=== PATIENT | female | born 1955 | race African-American/Black ===

== ENCOUNTER 2017-06-17 15:03 | Emergency (ER) | payer OTHER ==
[~2017-06-17] VITALS: Ht 157.5 cm; Wt 129.3 kg
[~2017-06-17 15:03] MED LIST: ADVAIR 100-501 EACH INH; METFORMIN HCL1000 M1 ORAL; VENTOLIN HFA18 GM INH
[2017-06-17] MEDS ORDERED: SILTUSSIN DM D118 ML PO (15:36)
[2017-06-17] MEDS ORDERED: OYSCO 500+D TA1 EAC1 PO (15:36)
[2017-06-17] MEDS ORDERED: HYDRALAZINE HCL10 MG ORAL (15:36)
[2017-06-17] MEDS ORDERED: [UNRECOGNIZED DRUG - SUPPLY] MC (16:20)
[2017-06-17] MEDS ORDERED: TESSALON PERLE100 MG ORAL (16:20)
[2017-06-17] MEDS ORDERED: ALBUTEROL SULF8.5 GM INH (16:20)
--- NOTE | 2017-06-17 16:20 | Emergency Room Report ---
History of Present Illness General Chief Complaint: General Complaint Source: Patient Present Illness HPI 61-year-old female history of asthma, hypertension, diabetes p/w cough for 3 weeks. Pt states cough is productive, with clear non bloody sputum. Denies fever chills sob or chest pain. Denies runny nose or myalgias. No sick contacts or recent travel. Patient states that she ran out of her albuterol inhaler Allergies: Coded Allergies: No Known Allergies (Unverified , 01/08/16) Patient History Past Medical History: see triage record Past Surgical History: none Pertinent Family History: none Last Menstrual Period: Post Reviewed Nursing Documentation: PMH: Agreed, PSxH: Agreed Nursing Documentation-PMH Hx Hypertension: Yes Hx Asthma: Yes Hx Diabetes: Yes Review of Systems All Other Systems: negative except mentioned in HPI Physical Exam Vital Signs Date Time Temp Pulse Resp B/P (MAP) Pulse Ox O2 Delivery O2 Flow Rate FiO2 06/17/17 15:30 98.2 68 17 149/65 98 Room Air Sp02 EP Interpretation: reviewed, normal General Appearance: normal inspection, well appearing, no apparent distress, alert, GCS 15, non-toxic Head: normocephalic, atraumatic Eyes: bilateral eye normal inspection, bilateral eye PERRL, bilateral eye EOMI ENT: normal ENT inspection, normal pharynx, normal voice, moist mucus membranes Neck: normal inspection, full range of motion, supple Respiratory: normal inspection, lungs clear, normal breath sounds, no respiratory distress, no retraction, no wheezing, speaking full sentences, chest symmetrical Cardiovascular #1: normal inspection, regular rate, rhythm, no edema, normal capillary refill Cardiovascular #2: 2+ radial (R), 2+ radial (L) Gastrointestinal: normal inspection, non tender, soft, non-distended, no guarding Musculoskeletal: normal inspection, back normal, normal range of motion, non- tender Neurologic: normal inspection, alert, oriented x3, responsive, motor strength/ tone normal, sensory intact, normal gait, speech normal Psychiatric: normal inspection, judgement/insight normal, memory normal Skin: normal inspection, normal color, no rash, warm/dry, well hydrated, normal turgor Medical Decision Making Diagnostic Impression: Primary Impression: Chronic cough ER Course 61-year-old female with cough for 3 weeks DDX: Viral URI vs. pneumonia Patient is not currently wheezing nor is in respiratory distress Plan: CXR, ER course: Patient remains nontoxic, not in resp distress. CXR obtained - no acute infiltrate Disposition: Patient is to be discharged home with a prescription of albuterol inhaler, Martín Hoffman Strict precautions discussed with patient on when to return to the emergency room including hemoptysis, high fevers, chills, SOB, chest pain which may indicate severe illness. Patient is to follow up with their primary care doctor within 5 days. Patient agrees with plan. Please note that this Emergency Department Report was dictated using [employer] writer salesperson technology software, occasionally this can lead to erroneous entry secondary to interpretation by the dictation equipment Chest X-ray CXR: Ordered: Yes 1 view Indication: Cough EP interpretation: Yes Interpretation: No consolidation, no effusion, no PTX, no acute cardiopulmonary disease Impression: No acute disease Electronically signed by Toni Raymundo MD Last Vital Signs Date Time Temp Pulse Resp B/P (MAP) Pulse Ox O2 Delivery O2 Flow Rate FiO2 06/17/17 15:30 98.2 68 17 149/65 98 Room Air Disposition: HOME, SELF-CARE Condition: Improved Scripts Blood Sugar Diagnostic (NOVA MAX GLUCOSE TEST STRIPS) 1 Each Strip EACH , #30 0 Refills Prov: RetinoToni M.DArslan 06/17/17 Albuterol Sulfate* (ALBUTEROL SULFATE MDI*) 8.5 Gm Hfa.aer.ad 2 PUFF INH Q4H Y for cough/wheezing, #1 EA 0 Refills Prov: RetinoToni M.DArslan 06/17/17 Benzonatate* (TESSALON PERLE*) 100 Mg Capsule 100 MG ORAL THREE TIMES A DAY for 7 Days, #21 PERLE 0 Refills Prov: RetinoKamilahiro M.DArslan 06/17/17 ZurioToni M.D. Jun 17, 2017 16:20
--- NOTE | 2017-06-17 16:39 | Diagnostic Imaging Report ---
Indication: Cough Comparison: 02/01/2016 A single view chest radiograph was obtained. Findings: Cardiomediastinal appearance is within normal limits for age. Pulmonary vascularity is appropriate. The diaphragmatic contour is smooth and costophrenic angles are sharp. No pleural effusions are identified. The bones are osteopenic. Impression: No acute findings
[2017-06-17 16:45] VITALS: BP 144/72
== END 2017-06-17 17:00 | disposition home or self-care (01) ==
LOC: EMR 16:49
DX: R05 Cough (principal); E11.9 Type 2 diabetes mellitus without complications; I10 Essential (primary) hypertension; J45.909 Unspecified asthma, uncomplicated
CPT/HCPCS: 71010; 99283